=== PATIENT | male | born 1980 | race Caucasian/White ===

== ENCOUNTER 2025-02-04 05:58 | Day surgery (SDC) | payer OTHER ==
[2025-02-03 09:43] VITALS: BMI 29.4
[2025-02-04] MEDS ORDERED: PROPOFOL 20 ML ONE (06:04)
[2025-02-04] MEDS ORDERED: fentaNYL PF 100 MCG/2 ML SYRINGE ONE ×2 (06:04→07:36)
[2025-02-04] MEDS ORDERED: Rocuronium Bromide 10 MG/ML (10ML VIAL) ONE (06:10)
[2025-02-04] MEDS ORDERED: Lidocaine 1% PF 5 ML VIAL ONE (06:10)
[2025-02-04] MEDS ORDERED: Thrombin 5000 UNITS/5 ML VIAL ONE (06:29)
[2025-02-04] MEDS ORDERED: CEFAZOLIN 2 GM VIAL ONE ×2 (06:53→11:31)
[2025-02-04] MEDS ORDERED: Ondansetron PF 4 MG/2 ML Vial ONE (07:45)
[2025-02-04] MEDS ORDERED: Ketorolac Tromethamine 30 MG (1 mL) VIAL ONE (07:45)
[2025-02-04] MEDS ORDERED: SUGAMMADEX SODIUM 200 MG/2 ML VIAL ONE ×2 (08:16→08:30)
[2025-02-04] MEDS ORDERED: Glycopyrrolate 0.2 MG/ML 5 ML SYRINGE ONE (08:31)
== END 2025-02-04 13:42 | disposition home or self-care (01) ==
LOC: SDC 05:58
PROVIDERS: ATTEND Neurological Surgery
PROC: 01NB0ZZ Release Lumbar Nerve, Open Approach (ICD-10-PCS; principal; 2025-02-04)
DX: M51.26 Other intervertebral disc displacement, lumbar region (principal); M54.16 Radiculopathy, lumbar region; M48.061 Spinal stenosis, lumbar region without neurogenic claudication; M71.30 Other bursal cyst, unspecified site; Z88.5 Allergy status to narcotic agent
CPT/HCPCS: C1713; J0169; J0665; J1100; J1885; J2405; J2704; J3010